=== PATIENT | male | born 1990 | race Two or more races ===

== ENCOUNTER 2023-07-25 12:02 | Emergency (ER) | payer MEDICAID ==
[~2023-07-25] VITALS: Ht 180.3 cm; Wt 86.0 kg
[2023-07-25] MEDS ORDERED: IPRATROPIUM BROM 0.5 MG/2.5ML INH SOL NEB ONE (16:15)
[2023-07-25] MEDS ORDERED: DexAMETHasone SOD PHOS 10MG/1ML VIAL INJ PO ONE (16:15)
[2023-07-25] MEDS ORDERED: ALBUTEROL MEDNEB 2.5 mg/3ml NEB NEB ONE (16:15)
[2023-07-25 16:17] VITALS: BP 120/77; PULSE 111; TEMP 98.1
[2023-07-25 17:23] VITALS: RESP 18; O2SAT 93
[2023-07-25] MEDS ORDERED: AZITTAB PO (17:28)
[2023-07-25] MEDS ORDERED: ALBUAER3 IN (17:28)
== END 2023-07-25 17:35 | disposition home or self-care (01) ==
LOC: ER 12:02
DX: J98.11 Atelectasis (principal)
CPT/HCPCS: 71045; 94640; 99283; J1100; J7644

== ENCOUNTER 2023-07-29 18:54 | Emergency (ER) | payer MEDICAID ==
[~2023-07-29] VITALS: Ht 180.3 cm; Wt 86.4 kg
[~2023-07-29 18:54] MED LIST: ALBUAER3 IN; AZITTAB PO
[2023-07-29 19:27] VITALS: BP 145/75; RESP 16; O2SAT 95
[2023-07-29 19:28] VITALS: PULSE 116
[2023-07-29 19:48] LABS: Basophils # (auto) 0 10 ^3/uL (0-0.2); Basophils % (auto) 0.4 % (0.0-2.0); Eosinophils # (auto) 0.2 10 ^3/uL (0-0.8); Eosinophils % (auto) 2.5 % (0.0-7.0); Hematocrit 45.8 % (41.0-53.0); Hemoglobin 15.6 g/dL (13.5-17.5); Lymphocytes % (auto) 10.2 % (10.0-50.0); Mean Corpuscular Hemoglobin 28.7 pg (28.0-32.0); Mean Corpuscular Hgb Conc. 34.1 g/dL (32.0-36.0); Mean Corpuscular Volume 84.3 fL (80.0-100.0); Monocytes # (auto) 1.1 10 ^3/uL (0-1.3); Monocytes % (auto) 11.9 % (0.0-12.0); Neutrophils # (auto) 7.1 10 ^3/uL (1.6-8.6); Nucleated Red Blood Cells % 0.1 %; Red Blood Cells 5.43 10^6/uL (4.5-5.90); Red Cell Distribution Width 13.4 % (11.8-14.3); White Blood Cell 9.5 10^3/uL (4.4-10.8)
[2023-07-29 20:05] LABS: Alanine Aminotransferase 451 U/L (7-40); Albumin 4.2 g/dL (3.2-4.8); Alkaline Phosphatase 244 U/L (46-116); Anion Gap 9 (5-15); Aspartate Aminotransferase 192 U/L (13-40); BUN/Creatinine Ratio 19.2 (10.0-20.0); Bilirubin, Total 2.1 mg/dL (0.2-1.0); Blood Urea Nitrogen 14 mg/dL (9-23); Calcium 8.7 mg/dL (8.7-10.4); Carbon Dioxide 26 mmol/L (20-30); Chloride 100 mmol/L (98-107); Glucose 133 mg/dL (74-106); Potassium 3.8 mmol/L (3.5-5.1); Sodium 135 mmol/L (136-145)
[2023-07-29 20:06] LABS: Total Protein 6.4 g/dL (5.7-8.2)
== END 2023-07-29 19:39 | disposition left against medical advice (07) ==
LOC: ER 18:54
DX: R06.02 Shortness of breath (principal); R50.9 Fever, unspecified; Z53.21 Procedure and treatment not carried out due to patient leaving prior to being seen by health care provider
CPT/HCPCS: 36415; 80053; 82248; 83690; 83880; 84484; 85025; 85379; 93005